=== PATIENT | female | born 1940 | race Caucasian/White ===

== ENCOUNTER 2017-05-12 00:12 | Outpatient (CLI) | payer MEDICARE, OTHER ==
[~2017-05-12 00:12] MED LIST: AMLO10TA PO; ASPI-1265 PO; CETI-102 PO; CHOL2000 PO; CYAN-19 PO; ENOX40SY7 SQ; EVOL140S SQ; LEVO150T8 PO; METO50TA17 PO; VITC500T PO; ZINC50TA60 PO
== END 2017-05-12 23:59 | disposition home or self-care (01) ==
LOC: DIABETIC 00:12
PROVIDERS: ATTEND Family Medicine
DX: E11.65 Type 2 diabetes mellitus with hyperglycemia (principal); I10 Essential (primary) hypertension; F17.200 Nicotine dependence, unspecified, uncomplicated
CPT/HCPCS: G0108

== ENCOUNTER 2017-05-29 06:23 | Inpatient (IN) | payer MEDICARE, OTHER ==
[~2017-05-29] VITALS: Ht 167.6 cm; Wt 96.0 kg
[2017-05-29 06:47] LABS: BASOPHILS % (AUTO) 0.4 % (0-1); EOSINOPHILS # (AUTO) 0.2 X10'3 (0-0.9); EOSINOPHILS % (AUTO) 2.6 % (0-6); HEMATOCRIT 39.2 % (35.0-45.0); HEMOGLOBIN 13.3 g/dl (12.0-16.0); LYMPHOCYTES # (AUTO) 2.7 X10'3 (1.1-4.8); LYMPHOCYTES % (AUTO) 33.4 % (21-51); MEAN CORPUSCULAR HEMOGLOBIN 31.6 PG (27.0-31.0); MEAN CORPUSCULAR HGB CONC 33.9 % (33.0-36.5); MEAN CORPUSCULAR VOLUME 93.1 FL (78-98); MEAN PLATELET VOLUME 7.3 FL (7.4-10.4); MONOCYTES # (AUTO) 0.6 X10'3 (0-0.9); MONOCYTES % (AUTO) 7.4 % (2-12); NEUTROPHILS # (AUTO) 4.5 X10'3 (1.8-7.7); NEUTROPHILS % (AUTO) 56.2 % (42-75); PLATELET COUNT 228 X10'3 (140-440); RED BLOOD COUNT 4.21 X10'6 (4.20-5.60)
[2017-05-29 06:57] LABS: INR 2.5 INR; PROTHROMBIN TIME 24.6 SECONDS (9.0-12.0)
[2017-05-29 07:14] LABS: ALANINE AMINOTRANSFERASE 19 U/L (12-78); ALBUMIN 3.5 G/DL (3.4-5.0); ALKALINE PHOSPHATASE 102 IU/L (46-116); ANION GAP 12 (8-16); ASPARTATE AMINO TRANSFERASE 16 U/L (10-37); BILIRUBIN,TOTAL 0.4 MG/DL (0.1-1.0); BLOOD UREA NITROGEN 25 MG/DL (7-18); BUN/CREATININE RATIO 13.9 (6.6-38.0); CALCIUM 8.7 MG/DL (8.5-10.1); CHLORIDE 109 MMOL/L (99-107); GLUCOSE 123 MG/DL (70-104); MAGNESIUM 1.6 MG/DL (1.5-2.4); POTASSIUM 3.9 MMOL/L (3.5-5.1); SODIUM 144 MMOL/L (135-145); TOTAL CARBON DIOXIDE 23.5 MMOL/L (24-32); TOTAL PROTEIN 7.1 G/DL (6.4-8.2); eGFR 27 ML/MIN
[2017-05-29] MEDS ORDERED: normal saline 1000ML IV soln IVB ONE (07:20)
[2017-05-29 08:26] LABS: CLARITY,URINE CLEAR (Clear); COLOR,URINE YELLOW (Yellow); GLUCOSE, URINE NEGATIVE (Neg); KETONES,URINE NEGATIVE (Neg); LEUKOCYTE ESTERASE ,URINE SMALL (Neg); NITRITES, URINE NEGATIVE (Neg); OCCULT BLOOD,URINE TRACE-INTACT (Neg); PH,URINE 5.5 (4.8-8.0); PROTEIN,URINE 30 mg/dl (Neg); UROBILINOGEN,URINE 0.2 E.U/dL (0.2-1.0)
[2017-05-29 08:27] LABS: UA COLLECTION TYPE CLN CATCH MIDSTREAM
[2017-05-29 08:38] LABS: WBC,URINE 20-30 /HPF (0-4)
[2017-05-29 08:41] LABS: BACTERIA,URINE 1+ /HPF (Neg); HYALINE CASTS 0-3 /LPF (NEGATIVE); RBC,URINE 0-2 /HPF (0-2); RENAL CELLS, URINE MODERATE /HPF; SQUAMOUS EPITHELIAL CELL,UR FEW /LPF (FEW); WBC CLUMPS,URINE FEW /HPF (NEGATIVE)
[2017-05-29] MEDS ORDERED: CefTRIAXone 2gm/NS 100ml IVPB 100 ML IV ONE (09:00)
[2017-05-29] MEDS: normal saline 1000ml 1,000 ML IV SCH ×2 (09:26→18:47)
[2017-05-29] MEDS ORDERED: magnesium 2GM in 50ml NS 50 ML IV PRN (09:30)
[2017-05-29] MEDS ORDERED: magnesium hydroxide 30ml (MOM) UD suspension PO PRN (09:30)
[2017-05-29] MEDS ORDERED: magnesium 4gm in 100ml NS 100 ML IV PRN (09:30)
[2017-05-29] MEDS ORDERED: potassium Cl 40MEQ/NS 500ml 500 ML IV PRN ×2 (09:30)
[2017-05-29] MEDS ORDERED: acetaminophen 325mg tablet PO PRN (09:30)
[2017-05-29] MEDS ORDERED: potassium Cl 20 mEq SR tablet PO PRN ×2 (09:30)
[2017-05-29] MEDS ORDERED: magnesium Cl slow-release 64mg tablet PO PRN (09:30)
[2017-05-29] MEDS ORDERED: ondansetron/PF 4mg/2ml inj IV PRN (09:30)
[2017-05-29] MEDS ORDERED: mag hydrox/Alum hydrox/simeth 30ml oral suspension PO PRN (09:30)
[2017-05-29 10:30] VITALS: BP 153/56
[2017-05-29 15:00] VITALS: BP 159/52
[2017-05-29 19:00] VITALS: BP 146/71
[2017-05-29 23:00] VITALS: BP 150/64
[2017-05-30 03:00] VITALS: BP 132/54
[2017-05-30] MEDS: normal saline 1000ml 1,000 ML IV SCH (05:26)
[2017-05-30 06:00] VITALS: BP 150/57
[2017-05-30 06:17] LABS: BASOPHILS % (AUTO) 0.6 % (0-1); EOSINOPHILS # (AUTO) 0.2 X10'3 (0-0.9); EOSINOPHILS % (AUTO) 3.1 % (0-6); HEMATOCRIT 33.6 % (35.0-45.0); HEMOGLOBIN 11.4 g/dl (12.0-16.0); LYMPHOCYTES # (AUTO) 1.5 X10'3 (1.1-4.8); LYMPHOCYTES % (AUTO) 23.9 % (21-51); MEAN CORPUSCULAR HEMOGLOBIN 31.6 PG (27.0-31.0); MEAN CORPUSCULAR HGB CONC 34.1 % (33.0-36.5); MEAN CORPUSCULAR VOLUME 92.7 FL (78-98); MONOCYTES # (AUTO) 0.5 X10'3 (0-0.9); MONOCYTES % (AUTO) 7.6 % (2-12); NEUTROPHILS # (AUTO) 4.2 X10'3 (1.8-7.7); NEUTROPHILS % (AUTO) 64.8 % (42-75); PLATELET COUNT 195 X10'3 (140-440); RED BLOOD COUNT 3.62 X10'6 (4.20-5.60); RED CELL DISTRIBUTION WIDTH 15.6 % (11.5-14.5); WHITE BLOOD COUNT 6.5 X10'3 (4.5-11.0)
[2017-05-30] MEDS ORDERED: levoTHYROXINE 75mcg tablet PO SCH (07:00)
[2017-05-30 07:26] LABS: ALBUMIN 2.8 G/DL (3.4-5.0); ANION GAP 8 (8-16); BLOOD UREA NITROGEN 22 MG/DL (7-18); BUN/CREATININE RATIO 12.9 (6.6-38.0); CALCIUM 7.5 MG/DL (8.5-10.1); CHLORIDE 111 MMOL/L (99-107); GLUCOSE 88 MG/DL (70-104); MAGNESIUM 1.3 MG/DL (1.5-2.4); POTASSIUM 4.3 MMOL/L (3.5-5.1); SODIUM 144 MMOL/L (135-145); TOTAL CARBON DIOXIDE 25.1 MMOL/L (24-32); eGFR 29 ML/MIN
[2017-05-30] MEDS ORDERED: ascorbic acid 500mg tablet PO SCH (08:00)
[2017-05-30] MEDS ORDERED: amLODIPine 5mg tablet PO SCH (08:00)
[2017-05-30] MEDS ORDERED: vitamin D (cholecalciferol) 1,000 unit tablet PO SCH (08:00)
[2017-05-30] MEDS ORDERED: CefTRIAXone/D5W-Rocephin 1gm 50 ML IV SCH (08:00)
[2017-05-30] MEDS ORDERED: metoprolol tartrate 50mg tablet PO SCH (08:00)
[2017-05-30] MEDS ORDERED: zinc sulfate 220mg capsule PO SCH ×2 (08:00→09:19)
[2017-05-30] MEDS ORDERED: K and/or MAG REPLACEMENT MC SCH (08:00)
[2017-05-30] MEDS ORDERED: cyanocobalamin 500mcg tablet PO SCH (08:00)
[2017-05-30] MEDS ORDERED: cetirizine 10mg tablet PO SCH (08:00)
[2017-05-30] MEDS ORDERED: cefTRIAXone 1g/NS 100ml IVPB 100 ML IV SCH (09:20)
[2017-05-30] MEDS ORDERED: zinc sulfate 220mg capsule PO ONE (09:25)
[2017-05-30 11:00] VITALS: BP 139/50
== END 2017-05-30 14:25 | disposition home or self-care (01) | DRG 690 ==
LOC: ER 06:24 → PCU 3S 09:26
PROVIDERS: ADMIT Internal Medicine; ATTEND Internal Medicine
DX: N39.0 Urinary tract infection, site not specified (principal); E11.9 Type 2 diabetes mellitus without complications; G47.30 Sleep apnea, unspecified; S93.402A Sprain of unspecified ligament of left ankle, initial encounter; I10 Essential (primary) hypertension; S00.81XA Abrasion of other part of head, initial encounter; Z60.2 Problems related to living alone; W18.30XA Fall on same level, unspecified, initial encounter; Z90.710 Acquired absence of both cervix and uterus; Z88.0 Allergy status to penicillin; Z88.2 Allergy status to sulfonamides; Z88.8 Allergy status to other drugs, medicaments and biological substances; Z91.013 Allergy to seafood; Z91.030 Bee allergy status; Z87.891 Personal history of nicotine dependence; Z86.711 Personal history of pulmonary embolism; Z83.3 Family history of diabetes mellitus; Z82.3 Family history of stroke; Y93.89 Activity, other specified; Y92.89 Other specified places as the place of occurrence of the external cause; Y99.8 Other external cause status
CPT/HCPCS: 36415; 70450; 71045; 72125; 73610; 73630; 80048; 80053; 81001; 83735; 83880; 84484; 85025; 85610; 87077; 87088; 87186; 93005; 96361; 96365; 96366; 99285; J0696; J7030

== ENCOUNTER 2017-08-10 04:59 | Outpatient (CLI) | payer MEDICARE, OTHER ==
[~2017-08-10 04:59] MED LIST changes: -ASPI-1265 PO; -ENOX40SY7 SQ; -EVOL140S SQ
== END 2017-08-10 23:59 | disposition home or self-care (01) ==
LOC: DIABETIC 04:59
PROVIDERS: ATTEND Family Medicine
DX: E11.65 Type 2 diabetes mellitus with hyperglycemia (principal); I10 Essential (primary) hypertension; Z87.891 Personal history of nicotine dependence
CPT/HCPCS: G0108

== ENCOUNTER 2017-12-14 01:00 | Emergency (ER) | payer MEDICARE, OTHER ==
[~2017-12-14] VITALS: Ht 170.2 cm; Wt 85.9 kg
[2017-12-14 04:31] LABS: D-DIMER 1.49 MG/L FEU (0-0.50); INR 1.9 INR; PROTHROMBIN TIME 18.9 SECONDS (9.0-12.0)
[2017-12-14 06:05] VITALS: BP 147/59
== END 2017-12-14 06:06 | disposition home or self-care (01) ==
LOC: ER 01:01
DX: M25.562 Pain in left knee (principal); I10 Essential (primary) hypertension; E11.9 Type 2 diabetes mellitus without complications; Z86.711 Personal history of pulmonary embolism; Z90.710 Acquired absence of both cervix and uterus; Z60.2 Problems related to living alone; Z88.0 Allergy status to penicillin; Z88.2 Allergy status to sulfonamides; Z91.030 Bee allergy status; Z79.899 Other long term (current) drug therapy
CPT/HCPCS: 36415; 85379; 85610; 93971; 99285

== ENCOUNTER 2018-03-31 00:16 | Outpatient (CLI) | payer MEDICARE, OTHER | END 2018-03-31 23:59 | disposition home or self-care (01) | LOC: DIABETIC 00:16 | PROVIDERS: ATTEND Family Medicine | DX: E11.65 Type 2 diabetes mellitus with hyperglycemia (principal); I10 Essential (primary) hypertension; Z79.82 Long term (current) use of aspirin; Z79.899 Other long term (current) drug therapy; Z79.01 Long term (current) use of anticoagulants; Z88.0 Allergy status to penicillin; Z88.2 Allergy status to sulfonamides; Z88.8 Allergy status to other drugs, medicaments and biological substances; Z87.891 Personal history of nicotine dependence | CPT/HCPCS: G0108 ==

== ENCOUNTER 2018-06-30 02:06 | Outpatient (CLI) | payer MEDICARE, OTHER | END 2018-06-30 23:59 | disposition home or self-care (01) | LOC: DIABETIC 02:06 | PROVIDERS: ATTEND Family Medicine | DX: E11.65 Type 2 diabetes mellitus with hyperglycemia (principal); I10 Essential (primary) hypertension; Z79.82 Long term (current) use of aspirin; Z88.0 Allergy status to penicillin; Z88.2 Allergy status to sulfonamides; Z88.8 Allergy status to other drugs, medicaments and biological substances; Z79.01 Long term (current) use of anticoagulants; Z90.710 Acquired absence of both cervix and uterus | CPT/HCPCS: G0108 ==

== ENCOUNTER 2018-09-09 09:26 | Inpatient (IN) | payer MEDICARE, OTHER | END 2018-09-12 15:10 | LOC: MED 3N 09-10 10:03 → ER 09:26 → MED 3N 09-10 11:56 → PCU 3S 09-10 16:10 → ORTHO 4S 12:16 | PROC: 0QS734Z Reposition Left Upper Femur with Internal Fixation Device, Percutaneous Approach (ICD-10-PCS; principal; 2018-09-10 08:13) | PROC: 2W3BXYZ Immobilization of Left Upper Arm using Other Device (ICD-10-PCS; 2018-09-10 08:13) | DX: R55 Syncope and collapse (principal); S72.002A Fracture of unspecified part of neck of left femur, initial encounter for closed fracture; S42.202A Unspecified fracture of upper end of left humerus, initial encounter for closed fracture; N17.9 Acute kidney failure, unspecified ==

== ENCOUNTER 2018-12-29 09:35 | Emergency (ER) | payer MEDICARE, OTHER ==
[~2018-12-29] VITALS: Ht 165.1 cm; Wt 78.0 kg
[~2018-12-29 09:35] MED LIST changes: +COU3T PO; -CYAN-19 PO; +CYAN100019 PO; +METO25TA6 PO; -METO50TA17 PO
[2018-12-29] MEDS ORDERED: ketorolac tromethamine 15mg/ml inj. IM ONE (11:40)
[2018-12-29] MEDS ORDERED: orphenadrine citrate 60mg/2ml inj. IM ONE (11:40)
--- NOTE | 2018-12-29 12:52 | NUR ---
PT REQUESTED FOR SNACKS ASKED DEEP ZHU , PER PA PT IS GOOD TO EAT.
[2018-12-29 13:55] VITALS: BP 132/84
== END 2018-12-29 13:57 | disposition home or self-care (01) ==
LOC: ER 09:35
DX: S16.1XXA Strain of muscle, fascia and tendon at neck level, initial encounter (principal); I10 Essential (primary) hypertension; G47.30 Sleep apnea, unspecified; E11.9 Type 2 diabetes mellitus without complications; Z90.710 Acquired absence of both cervix and uterus; Z86.73 Personal history of transient ischemic attack (TIA), and cerebral infarction without residual deficits; Z88.0 Allergy status to penicillin; Z88.2 Allergy status to sulfonamides; Z91.030 Bee allergy status; Z86.711 Personal history of pulmonary embolism; Z79.899 Other long term (current) drug therapy; Z79.01 Long term (current) use of anticoagulants; X58.XXXA Exposure to other specified factors, initial encounter; Y93.89 Activity, other specified; Y92.89 Other specified places as the place of occurrence of the external cause; Y99.8 Other external cause status
CPT/HCPCS: 72040; 96372; 99284; J1885; J2360

== ENCOUNTER 2019-01-02 02:11 | Outpatient (CLI) | payer MEDICARE, OTHER | END 2019-01-02 23:59 | disposition home or self-care (01) | LOC: DIABETIC 02:11 | PROVIDERS: ATTEND Family Medicine | DX: E11.65 Type 2 diabetes mellitus with hyperglycemia (principal); I10 Essential (primary) hypertension; Z79.899 Other long term (current) drug therapy; Z79.82 Long term (current) use of aspirin; Z79.01 Long term (current) use of anticoagulants; Z88.0 Allergy status to penicillin; Z88.2 Allergy status to sulfonamides; Z88.8 Allergy status to other drugs, medicaments and biological substances; Z87.891 Personal history of nicotine dependence | CPT/HCPCS: G0108 ==

== ENCOUNTER 2019-07-03 04:15 | Outpatient (CLI) | payer MEDICARE, OTHER ==
[~2019-07-03 04:15] MED LIST changes: -CETI-102 PO; +CETI-90 PO
== END 2019-07-03 23:59 | disposition home or self-care (01) ==
LOC: DIABETIC 04:15
PROVIDERS: ATTEND Family Medicine
DX: E11.65 Type 2 diabetes mellitus with hyperglycemia (principal)
CPT/HCPCS: G0108

== ENCOUNTER 2020-12-03 18:46 | Emergency (ER) | payer MEDICARE, OTHER ==
[~2020-12-03] VITALS: Ht 162.6 cm; Wt 80.1 kg
[~2020-12-03 18:46] MED LIST changes: +LOP25T PO; -METO25TA6 PO
[2020-12-03 19:33] VITALS: BP 129/66
[2020-12-03] MEDS ORDERED: METH4TAB3 PO (21:07)
[2020-12-03] MEDS ORDERED: predniSONE 20 mg tablet PO ONE (21:10)
== END 2020-12-03 21:53 | disposition home or self-care (01) ==
LOC: ER 18:47
DX: M10.9 Gout, unspecified (principal); M25.531 Pain in right wrist; I10 Essential (primary) hypertension; E11.9 Type 2 diabetes mellitus without complications; Z86.711 Personal history of pulmonary embolism; Z90.710 Acquired absence of both cervix and uterus; Z98.890 Other specified postprocedural states; Z88.0 Allergy status to penicillin; Z88.2 Allergy status to sulfonamides; Z88.8 Allergy status to other drugs, medicaments and biological substances; Z91.030 Bee allergy status; Z79.899 Other long term (current) drug therapy
CPT/HCPCS: 73130; 99283; J7512

== ENCOUNTER 2021-05-14 14:58 | Inpatient (IN) | payer MEDICARE, OTHER ==
[~2021-05-14] VITALS: Ht 165.1 cm; Wt 85.0 kg
--- NOTE | 2021-05-14 05:54 | NUR ---
This is a 80 year old patient that was admitted from the ER [facility] for positive COVID -19 and weakness and decline on a Bi- pap. Patient unable to communicate history at this time due to Bi- PAP.She is awake & alert & oriented to name.Patient came with saline lock # 18 in right antecubital area without redness or edema noted. The left wrist also with # 18 gauge saline lock & normal saline started@ k[facility].skin intact without redness or breakdown noted. Pt has wick in place for voiding.Side rails up x 2 and bed in low position.
[~2021-05-14 14:58] MED LIST changes: +METH4TAB3 PO
[2021-05-14] MEDS ORDERED: ipratropium/albuterol 3ml nebule NEB PRN (15:05)
[2021-05-14] MEDS ORDERED: normal saline 1000ML IV soln IVB ONE (15:10)
[2021-05-14] MEDS ORDERED: ipratropium/albuterol 3ml nebule NEB ONE (15:10)
[2021-05-14 15:11] LABS: ABG BASE EXCESS -8.3 mmol/L (-2.0-2.0); ABG HCO3 15.8 mmol/L (22.0-26.0); ABG OXYGEN SATURATION 81.4 % (94-97); ABG PCO2 (T) 28.2 mmHg (32.0-45.0); ABG PO2 (T) 46.5 mmHg (75.0-100.0); ALLEN'S TEST POSITIVE; FCOHb 0.2 % (0.0-3.9); FLOW 15 L/min; FMetHb 0.3 % (0.0-1.5); PATIENT TEMPERATURE 36.8; TOTAL HEMOGLOBIN 11.6 G/dl (12.0-16.0)
[2021-05-14 15:31] LABS: BASOPHILS % (AUTO) 0.1 % (0-1); EOSINOPHILS % (AUTO) 0 % (0-6); HEMATOCRIT 34.8 % (35.0-45.0); HEMOGLOBIN 11.5 g/dl (12.0-16.0); LYMPHOCYTES # (AUTO) 0.5 X10'3 (1.1-4.8); LYMPHOCYTES % (AUTO) 7.1 % (21-51); MEAN CORPUSCULAR HEMOGLOBIN 30.6 PG (27.0-31.0); MEAN CORPUSCULAR VOLUME 92.8 FL (78-98); MEAN PLATELET VOLUME 8.5 FL (7.4-10.4); MONOCYTES # (AUTO) 0.2 X10'3 (0-0.9); MONOCYTES % (AUTO) 2.4 % (2-12); NEUTROPHILS # (AUTO) 6.4 X10'3 (1.8-7.7); NEUTROPHILS % (AUTO) 90.4 % (42-75); PLATELET COUNT 209 X10'3 (140-440); RED BLOOD COUNT 3.76 X10'6 (4.20-5.60); RED CELL DISTRIBUTION WIDTH 16.7 % (11.5-14.5); WHITE BLOOD COUNT 7.1 X10'3 (4.5-11.0)
[2021-05-14 15:41] LABS: ALANINE AMINOTRANSFERASE 36 U/L (12-78); ALBUMIN 2.3 G/DL (3.4-5.0); ALBUMIN/GLOBULIN RATIO 0.6 (1.1-1.5); ALKALINE PHOSPHATASE 61 IU/L (46-116); ANION GAP 16 (8-16); ASPARTATE AMINO TRANSFERASE 93 U/L (10-37); BILIRUBIN,TOTAL 0.8 MG/DL (0.1-1.0); BLOOD UREA NITROGEN 64 MG/DL (7-18); BUN/CREATININE RATIO 16.8 (6.6-38.0); CALCIUM 7.4 MG/DL (8.5-10.1); CHLORIDE 104 MMOL/L (99-107); CREATININE 3.82 MG/DL (0.40-0.90); GLUCOSE 119 MG/DL (70-104); POTASSIUM 4.1 MMOL/L (3.5-5.1); SODIUM 138 MMOL/L (135-145); TOTAL CARBON DIOXIDE 17.6 MMOL/L (24-32); eGFR 11 ML/MIN
[2021-05-14] MEDS ORDERED: azithromycin/NS 500mg/250ml 250 ML IV ONE (16:25)
[2021-05-14] MEDS ORDERED: CefTRIAXone/D5W-Rocephin 1gm 50 ML IV ONE (16:25)
[2021-05-14 16:35] LABS: ANISOCYTOSIS 1+; PLATELET ESTIMATE NORMAL; TOTAL CELLS COUNTED 100
[2021-05-14 16:36] LABS: BURR CELLS 2+; SCHISTOCYTES FEW
[2021-05-14] MEDS ORDERED: dexamethasone inj 6 MG in dextrose 5%-water 100 ML IV STA (17:04)
[2021-05-14 17:25] LABS: CLARITY,URINE CLOUDY (Clear); COLOR,URINE YELLOW (Yellow); GLUCOSE, URINE NEGATIVE (Neg); KETONES,URINE TRACE mg/dl (Neg); LEUKOCYTE ESTERASE ,URINE TRACE (Neg); NITRITES, URINE NEGATIVE (Neg); OCCULT BLOOD,URINE TRACE-INTACT (Neg); PROTEIN,URINE 100 mg/dl (Neg); UROBILINOGEN,URINE 0.2 E.U/dL (0.2-1.0)
[2021-05-14 17:31] LABS: SQUAMOUS EPITHELIAL CELL,UR FEW /LPF (FEW); UA COLLECTION TYPE NON-SPECIFIED
[2021-05-14 17:32] LABS: RBC,URINE 0-2 /HPF (0-2); TRANSITIONAL EPI CELLS,URINE FEW /HPF
[2021-05-14 17:33] LABS: AMORPHOUS URATES 2+; BACTERIA,URINE 2+ /HPF (Neg)
[2021-05-14 17:43] LABS: ABG BASE EXCESS -7.8 mmol/L (-2.0-2.0); ABG HCO3 15.7 mmol/L (22.0-26.0); ABG OXYGEN SATURATION 93.1 % (94-97); ABG PCO2 (T) 26.4 mmHg (32.0-45.0); ABG PO2 (T) 69.1 mmHg (75.0-100.0); ALLEN'S TEST POSITIVE; FCOHb 0.3 % (0.0-3.9); FMetHb 0.3 % (0.0-1.5); FO2Hb 92.5 % (94-97); TOTAL HEMOGLOBIN 12.1 G/dl (12.0-16.0)
[2021-05-14 19:07] LABS: APTT 36 SECONDS (22-32)
[2021-05-14] MEDS ORDERED: acetaminophen 325mg tablet PO PRN (19:20)
[2021-05-14] MEDS ORDERED: ondansetron/PF 4mg/2ml inj IV PRN (19:20)
[2021-05-14] MEDS ORDERED: magnesium 2GM in 50ml NS 50 ML IV PRN (19:20)
[2021-05-14] MEDS ORDERED: potassium CL 10mEq/100ml bag 100 ML IV PRN (19:20)
[2021-05-14] MEDS ORDERED: potassium Cl 20 mEq SR tablet PO PRN ×2 (19:20)
[2021-05-14] MEDS: normal saline 1000ml 1,000 ML IV SCH (19:20)
[2021-05-14] MEDS ORDERED: magnesium hydroxide 30ml (MOM) UD suspension PO PRN (19:20)
[2021-05-14] MEDS ORDERED: magnesium 4gm in 100ml NS 100 ML IV PRN (19:20)
[2021-05-14] MEDS ORDERED: mag hydrox/Alum hydrox/simeth 30ml oral suspension PO PRN (19:20)
[2021-05-14] MEDS ORDERED: magnesium Cl slow-release 64mg tablet PO PRN (19:20)
[2021-05-14] MEDS ORDERED: dextrose 50%-water 50ml dispensing syringe IV PRN ×2 (19:25)
[2021-05-14] MEDS ORDERED: glucagon, human recombinant 1mg kit SUBCUT PRN (19:25)
[2021-05-14] MEDS ORDERED: MESSAGE TO PHARMACY PO ONE (19:25)
[2021-05-14] MEDS ORDERED: dextrose ORAL solution 15 GM/59 ML bottle PO PRN ×2 (19:25)
[2021-05-14 19:39] LABS: HEMOGLOBIN A1C 6.5 % (4.5-6.2)
[2021-05-14] MEDS: docusate sod 100mg capsule PO SCH (20:00)
[2021-05-14] MEDS: K and/or MAG REPLACEMENT MC SCH (20:13)
[2021-05-14] MEDS: enoxaparin 40mg/0.4ml syringe SUBCUT SCH (20:30)
[2021-05-14] MEDS: apixaban 2.5mg tablet PO SCH (20:38)
[2021-05-14 20:48] LABS: MAGNESIUM 1.7 MG/DL (1.5-2.4); POTASSIUM 4.1 MMOL/L (3.5-5.1)
[2021-05-14] MEDS: dexamethasone inj 6 MG in dextrose 5%-water 100 ML IV SCH (21:06)
[2021-05-14 22:00] VITALS: BP_SYST 116; BP_SYST 139; BP_DIAS 59; BP_DIAS 61
[2021-05-14] MEDS ORDERED: AMLO10TA13 PO (22:58)
[2021-05-14] MEDS ORDERED: METO25TA6 PO (22:58)
[2021-05-14] MEDS ORDERED: LEVO150T8 PO (22:58)
[2021-05-15 02:00] VITALS: BP 104/52
--- NOTE | 2021-05-15 06:47 | NUR ---
Problems reprioritized. Patient report given, questions answered & plan of care reviewed with Liza.
--- NOTE | 2021-05-15 06:53 | NUR ---
Patient in room ORTHO 4011. I have received report from Johanne LUGO and had the opportunity to ask questions and assume patient care.
[2021-05-15 07:38] LABS: BASOPHILS % (AUTO) 0 % (0-1); EOSINOPHILS % (AUTO) 0 % (0-6); HEMATOCRIT 32.5 % (35.0-45.0); LYMPHOCYTES # (AUTO) 0.2 X10'3 (1.1-4.8); LYMPHOCYTES % (AUTO) 3.2 % (21-51); MEAN CORPUSCULAR HEMOGLOBIN 30.7 PG (27.0-31.0); MEAN CORPUSCULAR HGB CONC 33.8 g/dL (33.0-36.5); MEAN CORPUSCULAR VOLUME 90.7 FL (78-98); MEAN PLATELET VOLUME 8.5 FL (7.4-10.4); MONOCYTES # (AUTO) 0.1 X10'3 (0-0.9); MONOCYTES % (AUTO) 2.1 % (2-12); NEUTROPHILS # (AUTO) 4.9 X10'3 (1.8-7.7); NEUTROPHILS % (AUTO) 94.7 % (42-75); PLATELET COUNT 183 X10'3 (140-440); RED BLOOD COUNT 3.58 X10'6 (4.20-5.60); RED CELL DISTRIBUTION WIDTH 16.4 % (11.5-14.5); WHITE BLOOD COUNT 5.2 X10'3 (4.5-11.0)
[2021-05-15 07:57] LABS: ANION GAP 16 (8-16); BLOOD UREA NITROGEN 66 MG/DL (7-18); CHLORIDE 105 MMOL/L (99-107); CREATININE 3.48 MG/DL (0.40-0.90); GLUCOSE 137 MG/DL (70-104); POTASSIUM 4.1 MMOL/L (3.5-5.1); SODIUM 140 MMOL/L (135-145); TOTAL CARBON DIOXIDE 18.8 MMOL/L (24-32)
[2021-05-15 07:58] LABS: ALANINE AMINOTRANSFERASE 36 U/L (12-78); ALBUMIN 2.2 G/DL (3.4-5.0); ALBUMIN/GLOBULIN RATIO 0.6 (1.1-1.5); ALKALINE PHOSPHATASE 67 IU/L (46-116); ASPARTATE AMINO TRANSFERASE 89 U/L (10-37); BILIRUBIN,TOTAL 0.7 MG/DL (0.1-1.0); CALCIUM 7.3 MG/DL (8.5-10.1); MAGNESIUM 1.7 MG/DL (1.5-2.4); eGFR 13 ML/MIN
[2021-05-15] MEDS: metoprolol tartrate 25mg tablet PO SCH (08:00)
[2021-05-15] MEDS: K and/or MAG REPLACEMENT MC SCH ×2 (08:00→20:40)
[2021-05-15 10:00] VITALS: BP 87/63
[2021-05-15] MEDS: apixaban 2.5mg tablet PO SCH ×2 (10:32→20:38)
[2021-05-15] MEDS: docusate sod 100mg capsule PO SCH ×2 (10:32→20:38)
[2021-05-15] MEDS: levoTHYROXINE 75mcg tablet PO SCH (10:33)
[2021-05-15] MEDS: enoxaparin 40mg/0.4ml syringe SUBCUT SCH (10:34)
[2021-05-15] MEDS: dexamethasone inj 6 MG in dextrose 5%-water 100 ML IV SCH ×2 (12:08→20:39)
[2021-05-15 18:00] VITALS: BP 114/58
[2021-05-15 22:00] VITALS: BP 116/59
[2021-05-16 02:00] VITALS: BP 121/71
[2021-05-16 04:00] VITALS: BP 143/54
--- NOTE | 2021-05-16 06:41 | NUR ---
Patient in room ORTHO 4011. I have received report from Gia LUGO and had the opportunity to ask questions and assume patient care.
[2021-05-16] MEDS: K and/or MAG REPLACEMENT MC SCH ×2 (08:00→20:00)
[2021-05-16 09:04] LABS: BASOPHILS % (AUTO) 0.5 % (0-1); EOSINOPHILS % (AUTO) 0.3 % (0-6); HEMATOCRIT 34.9 % (35.0-45.0); HEMOGLOBIN 11.9 g/dl (12.0-16.0); LYMPHOCYTES # (AUTO) 0.1 X10'3 (1.1-4.8); LYMPHOCYTES % (AUTO) 1.4 % (21-51); MEAN CORPUSCULAR HEMOGLOBIN 31.2 PG (27.0-31.0); MEAN CORPUSCULAR VOLUME 91.9 FL (78-98); MEAN PLATELET VOLUME 8.7 FL (7.4-10.4); MONOCYTES # (AUTO) 0.3 X10'3 (0-0.9); MONOCYTES % (AUTO) 3.1 % (2-12); NEUTROPHILS # (AUTO) 8.1 X10'3 (1.8-7.7); NEUTROPHILS % (AUTO) 94.7 % (42-75); PLATELET COUNT 195 X10'3 (140-440); RED BLOOD COUNT 3.79 X10'6 (4.20-5.60); RED CELL DISTRIBUTION WIDTH 16.9 % (11.5-14.5); WHITE BLOOD COUNT 8.6 X10'3 (4.5-11.0)
[2021-05-16] MEDS: apixaban 2.5mg tablet PO SCH ×2 (09:07→20:52)
[2021-05-16] MEDS: docusate sod 100mg capsule PO SCH ×2 (09:07→20:52)
[2021-05-16] MEDS: levoTHYROXINE 75mcg tablet PO SCH (09:07)
[2021-05-16] MEDS: dexamethasone inj 6 MG in dextrose 5%-water 100 ML IV SCH ×2 (09:08→20:53)
[2021-05-16] MEDS: metoprolol tartrate 25mg tablet PO SCH (09:08)
[2021-05-16 09:42] LABS: ALANINE AMINOTRANSFERASE 33 U/L (12-78); ALBUMIN 2.3 G/DL (3.4-5.0); ALBUMIN/GLOBULIN RATIO 0.5 (1.1-1.5); ALKALINE PHOSPHATASE 103 IU/L (46-116); ANION GAP 14 (8-16); ASPARTATE AMINO TRANSFERASE 66 U/L (10-37); BILIRUBIN,TOTAL 0.7 MG/DL (0.1-1.0); BLOOD UREA NITROGEN 71 MG/DL (7-18); BUN/CREATININE RATIO 22.5 (6.6-38.0); CALCIUM 7.9 MG/DL (8.5-10.1); CHLORIDE 104 MMOL/L (99-107); CREATININE 3.16 MG/DL (0.40-0.90); GLUCOSE 136 MG/DL (70-104); MAGNESIUM 1.8 MG/DL (1.5-2.4); POTASSIUM 3.6 MMOL/L (3.5-5.1); SODIUM 138 MMOL/L (135-145); TOTAL CARBON DIOXIDE 19.6 MMOL/L (24-32); TOTAL PROTEIN 6.5 G/DL (6.4-8.2); eGFR 14 ML/MIN
[2021-05-16 10:00] VITALS: BP 126/66
--- NOTE | 2021-05-16 12:54 | NUR ---
Corey Consult: Pt admit DX respiratory failure, COVID-19, bilateral PNA, and stable dementia per EMR. Hx T2DM A1C 6.5 appropriate given age. Corey 12 w/ skin intact per EMR. Pt PO 25% two of past 4 meals only on carb controlled diet otherwise 0% PO currently on 55L HFNC per EMR. Pt initially AOx1 now AOx3 this AM per EMR. RD recommends Ensure Enlive TIDWM for further protein/kcal needs may tolerate liquid nutrition intake better at this time; MD notified. Will send chopped foods for ease of PO as well; dietary notified. Pt receiving routine colace no BM yet though admit 05/14. Will continue to monitor for further nutrition intervention needs this admit. Rec: 1. liberalize to regular diet given poor PO trends, age, and A1C 6.5%; chop all food for ease of PO; assistance w/ meals 2. Ensure Enlive TIDWM; pending MD verification in EMR 3. encourage meal/ONS intake 4. routine bowel care 5. scaled wt this admit; subsequent weeky wts 6. IF pt poor PO persists at least 5 days and within POC; consider post-pyloric EN vs PN to optimize nutrition status Addendum: 05/16/21 at [address] Amended: Links added.
[2021-05-16] MEDS: lactose-reduced food (Ensure Enlive) - 237ml bottle PO SCH ×2 (13:00→18:00)
[2021-05-16 15:00] VITALS: BP 114/60
[2021-05-16] MEDS: normal saline 1000ml 1,000 ML IV SCH (17:15)
--- NOTE | 2021-05-16 18:39 | NUR ---
Problems reprioritized. Patient report given, questions answered & plan of care reviewed with Gia RN.
[2021-05-16 20:00] VITALS: BP 131/69
[2021-05-16 22:00] VITALS: BP 119/68
[2021-05-17] VITALS (11 sets, daily range): BP systolic 93–143; BP diastolic 60–101
--- NOTE | 2021-05-17 01:41 | NUR ---
MD ALMONTE CALLED PT [id number], ORDERED TO GIVE METOPROLOL 8AM DOSE NOW AND ORDER TELEMETRY MONITORING
[2021-05-17] MEDS: metoprolol tartrate 25mg tablet PO SCH (01:49)
[2021-05-17] MEDS ORDERED: metoprolol tartrate 1mg/ml inj IV ONE (07:00)
--- NOTE | 2021-05-17 07:20 | NUR ---
NOTIFIED, NO CHANGE IN HEART RATE, DAY SHIFT RN TO GIVE MEDICATION ONCE AVAILABLE IN PT PROFILE
--- NOTE | 2021-05-17 07:53 | NUR ---
PAGER ID: [phone] MESSAGE: Staci Rodriguezannabelle [id number] Pt. in afib Lopressor iv 5 mg given recently. HR down from 140s to 120s. BP 121/73 map 82. Last lactic 2.6 2+UTI no ATB ordered. low fowl ouput 100ml overnight. Not drinking. Fluids? ATB? More Lopressor? Gretta [id number]
[2021-05-17] MEDS: lactose-reduced food (Ensure Enlive) - 237ml bottle PO SCH ×3 (08:00→18:00)
[2021-05-17] MEDS: K and/or MAG REPLACEMENT MC SCH ×2 (08:00→20:00)
[2021-05-17] MEDS: docusate sod 100mg capsule PO SCH ×2 (08:00→20:00)
[2021-05-17] MEDS ORDERED: metoprolol tartrate 25mg tablet PO ONE (08:00)
[2021-05-17 08:03] LABS: ALANINE AMINOTRANSFERASE 33 U/L (12-78); ALBUMIN 2.3 G/DL (3.4-5.0); ALBUMIN/GLOBULIN RATIO 0.5 (1.1-1.5); ALKALINE PHOSPHATASE 145 IU/L (46-116); ANION GAP 16 (8-16); ASPARTATE AMINO TRANSFERASE 51 U/L (10-37); BILIRUBIN,TOTAL 0.6 MG/DL (0.1-1.0); BLOOD UREA NITROGEN 74 MG/DL (7-18); BUN/CREATININE RATIO 26.4 (6.6-38.0); CALCIUM 7.9 MG/DL (8.5-10.1); CHLORIDE 108 MMOL/L (99-107); GLUCOSE 151 MG/DL (70-104); MAGNESIUM 1.9 MG/DL (1.5-2.4); POTASSIUM 3.5 MMOL/L (3.5-5.1); SODIUM 143 MMOL/L (135-145); TOTAL CARBON DIOXIDE 19.4 MMOL/L (24-32); TOTAL PROTEIN 6.8 G/DL (6.4-8.2); eGFR 16 ML/MIN
[2021-05-17] MEDS: dexamethasone inj 6 MG in dextrose 5%-water 100 ML IV SCH ×2 (09:23→19:22)
[2021-05-17] MEDS: apixaban 2.5mg tablet PO SCH ×2 (09:24→20:00)
[2021-05-17] MEDS: levoTHYROXINE 75mcg tablet PO SCH (09:24)
[2021-05-17 12:07] LABS: HEMOGLOBIN 12.4 g/dl (12.0-16.0); MEAN CORPUSCULAR HEMOGLOBIN 30.9 PG (27.0-31.0); MEAN CORPUSCULAR HGB CONC 33.5 g/dL (33.0-36.5)
[2021-05-17 12:08] LABS: HEMATOCRIT 36.9 % (35.0-45.0); MEAN CORPUSCULAR VOLUME 92.2 FL (78-98); RED BLOOD COUNT 4.01 X10'6 (4.20-5.60); RED CELL DISTRIBUTION WIDTH 17.2 % (11.5-14.5); WHITE BLOOD COUNT 12.5 X10'3 (4.5-11.0)
[2021-05-17] MEDS: levoFLOXACIN-Levaquin 500mg/D5 100 ML IV SCH (12:55)
[2021-05-17 13:12] LABS: PLATELET ESTIMATE DECREASED; TOTAL CELLS COUNTED 100
[2021-05-17 13:13] LABS: ANISOCYTOSIS 1+; POIKILOCYTOSIS FEW
[2021-05-17] MEDS ORDERED: diltiazem 30mg tablet PO SCH (14:00)
[2021-05-17] MEDS: normal saline 1000ml 1,000 ML IV SCH (14:03)
[2021-05-17] MEDS: LORazepam 2 mg/ml vial IV PRN (14:07)
--- NOTE | 2021-05-17 15:04 | NUR ---
PAGER ID: [phone] MESSAGE: Staci Fracisco [id number] Pt. still sustaining afib HR in 120s. BP 121/ 74. Pt. has already been given po Lopressor, Cardizem po, and Ativan iv. Do you want to order anything else? Gretta [phone]
[2021-05-17] MEDS ORDERED: LIDOcaine 2% 10ml TOPICAL JELLY (Urojet) TP ONE (16:30)
[2021-05-17] MEDS: diltiazem 30mg tablet PO SCH ×2 (16:40→17:27)
--- NOTE | 2021-05-17 17:22 | NUR ---
PAGER ID: [phone] MESSAGE: Staci Fracisco [id number] Do you want increased fluids or repeat lactic for 3.4 lactic? Call MD Reed says its not his pt. ??? Gretta [phone]
[2021-05-17] MEDS: morphine 2 MG/ML inj. syringe IV PRN (17:28)
--- NOTE | 2021-05-17 17:38 | NUR ---
PAGER ID: [phone] MESSAGE: Staci Yap [id number] Pt. unable to swallow. Will also need sitter order. Pt. trys to take off mask. Calling a rapid. Gretta [id number]
--- NOTE | 2021-05-17 17:51 | NUR ---
Rapid called. Spoke with hospitalist on phone see new orders. BP 127/78 HR 120 in afib RR 35. Pt. continues to take off CPAP and is declining. Sitter at bedside assisting pt. Ativan ordered. Unable to swallow at this time.
[2021-05-17] MEDS ORDERED: LORazepam 2 mg/ml vial IV ONE (17:55)
--- NOTE | 2021-05-17 18:50 | NUR ---
Patient in room ORTHO 4010. I have received report from PARISH Glynn and had the opportunity to ask questions and assume patient care.
--- NOTE | 2021-05-17 18:51 | NUR ---
Report given to podiatrist Yvonne.
[2021-05-17] MEDS: insulin Lispro (HumaLOG) vial - multi-dose SQ SCH (19:49)
[2021-05-17] MEDS: diltiazem-NS 100mg/100ml 100 ML IV SCH (20:02)
--- NOTE | 2021-05-17 20:30 | NUR ---
Around this time I called and received an order for restraints because even with a sitter she was able to remove her oxygen.
[2021-05-18] VITALS (9 sets, daily range): BP systolic 103–154; BP diastolic 61–93
[2021-05-18] MEDS: LORazepam 2 mg/ml vial IV PRN ×5 (00:49→21:19)
--- NOTE | 2021-05-18 06:35 | NUR ---
Problems reprioritized. Patient report given, questions answered & plan of care reviewed with PARISH Diaz.
[2021-05-18 06:56] LABS: ALBUMIN 2.4 G/DL (3.4-5.0); ANION GAP 18 (8-16); BILIRUBIN,TOTAL 0.9 MG/DL (0.1-1.0); BLOOD UREA NITROGEN 77 MG/DL (7-18); BUN/CREATININE RATIO 26.9 (6.6-38.0); CALCIUM 8.5 MG/DL (8.5-10.1); CHLORIDE 109 MMOL/L (99-107); CREATININE 2.86 MG/DL (0.40-0.90); GLUCOSE 193 MG/DL (70-104); MAGNESIUM 1.9 MG/DL (1.5-2.4); POTASSIUM 3.8 MMOL/L (3.5-5.1); SODIUM 144 MMOL/L (135-145); TOTAL CARBON DIOXIDE 16.7 MMOL/L (24-32); TOTAL PROTEIN 6.4 G/DL (6.4-8.2); eGFR 16 ML/MIN
[2021-05-18 06:57] LABS: ALANINE AMINOTRANSFERASE 36 U/L (12-78); ALBUMIN/GLOBULIN RATIO 0.6 (1.1-1.5); ALKALINE PHOSPHATASE 210 IU/L (46-116); ASPARTATE AMINO TRANSFERASE 64 U/L (10-37)
--- NOTE | 2021-05-18 07:56 | NUR ---
Paged Dr. Carranza regarding pt. being NPO and Unable to take Eliquis.
[2021-05-18] MEDS: K and/or MAG REPLACEMENT MC SCH ×2 (08:00→19:36)
[2021-05-18] MEDS: docusate sod 100mg capsule PO SCH ×2 (08:00→18:47)
[2021-05-18] MEDS: levoTHYROXINE 75mcg tablet PO SCH (08:00)
[2021-05-18] MEDS: apixaban 2.5mg tablet PO SCH ×2 (08:00→18:48)
[2021-05-18] MEDS: lactose-reduced food (Ensure Enlive) - 237ml bottle PO SCH ×3 (08:00→18:00)
[2021-05-18] MEDS: dexamethasone inj 6 MG in dextrose 5%-water 100 ML IV SCH ×2 (08:14→19:35)
[2021-05-18] MEDS: levoFLOXACIN-Levaquin 500mg/D5 100 ML IV SCH (08:14)
[2021-05-18] MEDS: insulin Lispro (HumaLOG) vial - multi-dose SQ SCH (08:33)
[2021-05-18 09:36] LABS: BASOPHILS # (AUTO) 0.2 X10'3 (0-0.2); BASOPHILS % (AUTO) 1.4 % (0-1); EOSINOPHILS % (AUTO) 0 % (0-6); HEMATOCRIT 34.1 % (35.0-45.0); HEMOGLOBIN 11.2 g/dl (12.0-16.0); LYMPHOCYTES # (AUTO) 2.3 X10'3 (1.1-4.8); LYMPHOCYTES % (AUTO) 14.9 % (21-51); MEAN CORPUSCULAR HEMOGLOBIN 30.2 PG (27.0-31.0); MEAN CORPUSCULAR HGB CONC 32.7 g/dL (33.0-36.5); MEAN CORPUSCULAR VOLUME 92.3 FL (78-98); MEAN PLATELET VOLUME 8.3 FL (7.4-10.4); MONOCYTES # (AUTO) 0.4 X10'3 (0-0.9); MONOCYTES % (AUTO) 2.3 % (2-12); NEUTROPHILS # (AUTO) 12.7 X10'3 (1.8-7.7); NEUTROPHILS % (AUTO) 81.4 % (42-75); PLATELET COUNT 62 X10'3 (140-440); RED CELL DISTRIBUTION WIDTH 16.8 % (11.5-14.5); WHITE BLOOD COUNT 15.6 X10'3 (4.5-11.0)
[2021-05-18 10:14] LABS: ANISOCYTOSIS 1+; ELLIPTOCYTES 1+; NUCLEATED RED BLOOD CELLS 1 /100WBC (0-0); PLATELET ESTIMATE DECREASED; POLYCHROMASIA 1+; TEAR DROP CELLS 1+; TOTAL CELLS COUNTED 100
[2021-05-18 10:15] LABS: ACANTHOCYTES 1+; BURR CELLS 1+
[2021-05-18] MEDS: morphine 2 MG/ML inj. syringe IV PRN ×3 (10:42→16:30)
[2021-05-18] MEDS: sodium bicarbonate (8.4%) inj. 150 MEQ in dextrose 5%-water 1,000 ML IV SCH (10:45)
[2021-05-18] MEDS: diltiazem-NS 100mg/100ml 100 ML IV SCH ×2 (15:03→21:17)
--- NOTE | 2021-05-18 15:37 | NUR ---
Pt. is comfort care per POA. Will keep on BIPAP until family gets a chance to visit.
[2021-05-18] MEDS ORDERED: lactobacillus rhamnosus 10,000 MMU CELLS/CAPSULE PO SCH (20:00)
[2021-05-19] MEDS: morphine 2 MG/ML inj. syringe IV PRN (00:15)
[2021-05-19 02:00] VITALS: BP 109/65
[2021-05-19] MEDS: sodium bicarbonate (8.4%) inj. 150 MEQ in dextrose 5%-water 1,000 ML IV SCH (03:11)
[2021-05-19] MEDS: LORazepam 2 mg/ml vial IV PRN ×2 (03:14→11:16)
[2021-05-19 06:00] VITALS: BP 122/70
[2021-05-19 07:09] LABS: HEMOGLOBIN 10.9 g/dl (12.0-16.0); MEAN CORPUSCULAR VOLUME 90.8 FL (78-98); MEAN PLATELET VOLUME 8.9 FL (7.4-10.4); WHITE BLOOD COUNT 15.8 X10'3 (4.5-11.0)
[2021-05-19 07:15] LABS: BASOPHILS # (AUTO) 0.1 X10'3 (0-0.2); BASOPHILS % (AUTO) 0.7 % (0-1); EOSINOPHILS % (AUTO) 0 % (0-6); HEMATOCRIT 32.3 % (35.0-45.0); LYMPHOCYTES # (AUTO) 0.3 X10'3 (1.1-4.8); LYMPHOCYTES % (AUTO) 2.2 % (21-51); MEAN CORPUSCULAR HEMOGLOBIN 30.8 PG (27.0-31.0); MEAN CORPUSCULAR HGB CONC 33.9 g/dL (33.0-36.5); MONOCYTES # (AUTO) 0.4 X10'3 (0-0.9); MONOCYTES % (AUTO) 2.7 % (2-12); NEUTROPHILS # (AUTO) 14.9 X10'3 (1.8-7.7); NEUTROPHILS % (AUTO) 94.4 % (42-75); RED BLOOD COUNT 3.55 X10'6 (4.20-5.60); RED CELL DISTRIBUTION WIDTH 17.2 % (11.5-14.5)
[2021-05-19 07:26] LABS: ALANINE AMINOTRANSFERASE 39 U/L (12-78); ALBUMIN 2.2 G/DL (3.4-5.0); ALBUMIN/GLOBULIN RATIO 0.6 (1.1-1.5); ALKALINE PHOSPHATASE 241 IU/L (46-116); ANION GAP 16 (8-16); ASPARTATE AMINO TRANSFERASE 77 U/L (10-37); BILIRUBIN,TOTAL 1.9 MG/DL (0.1-1.0); BLOOD UREA NITROGEN 92 MG/DL (7-18); BUN/CREATININE RATIO 29.3 (6.6-38.0); CALCIUM 8.4 MG/DL (8.5-10.1); CHLORIDE 112 MMOL/L (99-107); CREATININE 3.14 MG/DL (0.40-0.90); GLUCOSE 199 MG/DL (70-104); POTASSIUM 4.7 MMOL/L (3.5-5.1); SODIUM 146 MMOL/L (135-145); TOTAL PROTEIN 5.8 G/DL (6.4-8.2); eGFR 14 ML/MIN
[2021-05-19] MEDS: dexamethasone inj 6 MG in dextrose 5%-water 100 ML IV SCH (08:00)
[2021-05-19 08:23] LABS: PLATELET COUNT 43 X10'3 (140-440)
[2021-05-19 08:29] LABS: ANISOCYTOSIS 1+; NUCLEATED RED BLOOD CELLS 4 /100WBC (0-0); PLATELET ESTIMATE DECREASED; TOTAL CELLS COUNTED 100
[2021-05-19 08:30] LABS: ACANTHOCYTES FEW; BURR CELLS 2+; ELLIPTOCYTES 1+; POLYCHROMASIA FEW; SCHISTOCYTES FEW; TEAR DROP CELLS FEW
[2021-05-19 10:00] VITALS: BP 132/77
--- NOTE | 2021-05-19 11:54 | NUR ---
F/u 05/19: Noted pt has been made NPO and DNR w/ comfort care per EMR. LBM 05/17 per EMR. Will continue to follow. Rec: 1. bowel care per rx Addendum: 05/19/21 at [address] Amended: Links added.
--- NOTE | 2021-05-19 14:23 | NUR ---
PRESSURE ULCER EDUCATION: DEFINITION: A pressure ulcer is an area of skin that breaks down when you stay in one position too long. The constant pressure against the skin reduces the blood flow to that area and the affected tissue dies. CAUSES: "Being bedridden or in a wheelchair "Fragile skin "Having a chronic condition, such as diabetes or vascular disease "Inability to move certain parts of your body without assistance "Older age "Incontinence of urine or stool SYMPTOMS: "A reddened area that DOES NOT turn white when pressed on - this can be the beginning of a pressure ulcer "A blister, deep sore or a crater - these can be advanced pressure ulcers FIRST AID: "Relieve the pressure on this area "Keep the area clean and dry "Call your primary doctor if you see any of the above symptoms "DO NOT massage the area "DO NOT use a donut shaped or ring shaped pillow- these actually interfere with the blood flow and cause complications PREVENTION: "Check for pressure ulcers everyday "Change position at least every two hours to relieve pressure "Use items that help relieve pressure- pillows, sheepskin, foam padding, and powders. "Keep skin clean and dry "Eat healthy well balanced meals "Exercise daily IF YOU SEE ANY OF THESE SYMPTOMS WHILE IN THE HOSPITAL - TELL YOUR NURSE IMMEDIATELY. IF YOU SEE ANY OF THESE SYMPTOMS WHILE AT HOME OR HAVE ANY QUESTIONS OR CONCERNS ABOUT PRESSURE ULCERS - CALL YOUR PRIMARY DOCTOR IMMEDIATELY. Addendum: 05/19/21 at 1424 by Una Portillo RN Amended: Links added.
--- NOTE | 2021-05-19 17:38 | NUR ---
I CALLED [facility] [employer] AT 1730 AND FINISHED AT 173, MARJORIE GAVE ME # [phone] AND TOLD ME THAT THE BODY CAN BE RELEASED APPROPRIATE
--- NOTE | 2021-05-19 17:46 | NUR ---
1720: Telemetry called to say pt is all of a sudden in asystole. 1721: Paged 1724: MD stated to have RN pronounce and RN to call family. 1725: Asystole strip printed by telemetry and placed in chart 1727: Called son Rigoberto to notify of pt's . Rigoberto stated that no mortuary was chosen yet. He stated he will call the other brother to see which one to use. 1730: public address system operator called [facility] 1735: Discontinued greene catheter and both piv's. [employer] will clean up patient now. 1743: Spoke to sonRigoberto regarding mortuary. He stated that they will use [facility]. public address system operator also spoke to Rigoberto to confirm mortuary choice. 1745 [facility] to [facility] pt this evening.
--- NOTE | 2021-05-19 17:50 | NUR ---
[facility] had pt all ready for pt to be picked up. Belongings in bag, son aware of pts . [facility] came and picked up pt.
--- NOTE | 2021-05-19 18:00 | NUR ---
CALLED [facility] PER SON/DECISION MAKERS REQUEST FOR BODY TO BE PICKED UP, TIRE BALANCER SAID THAT THEY WOULD CONTACT THE DIRECTOR OF THEIR WORK AND ARRANGE FOR COMMERCIAL FINANCE MANAGER
--- NOTE | 2021-05-19 18:27 | NUR ---
Problems reprioritized. Patient report given, questions answered & plan of care reviewed with PARISH Cooper.
--- NOTE | 2021-05-19 18:28 | NUR ---
Patient in room ORTHO 4010. I have received report from PARISH Rice and had the opportunity to ask questions and assume patient care.
--- NOTE | 2021-05-19 19:51 | NUR ---
Body was released to [facility] with all belongings left via stretcher.
== END 2021-05-19 17:50 | DRG 177 ==
LOC: ER 14:59 → ED HOLD 19:21 → ORTHO 4S 22:57
PROVIDERS: ADMIT Internal Medicine; ATTEND Family Medicine
PROC: 5A09357 Assistance with Respiratory Ventilation, Less than 24 Consecutive Hours, Continuous Positive Airway Pressure (ICD-10-PCS; 2021-05-13)
PROC: 5A09357 Assistance with Respiratory Ventilation, Less than 24 Consecutive Hours, Continuous Positive Airway Pressure (ICD-10-PCS; 2021-05-14)
PROC: 5A0935A Assistance with Respiratory Ventilation, Less than 24 Consecutive Hours, High Flow/Velocity Cannula (ICD-10-PCS; 2021-05-14)
PROC: 5A09357 Assistance with Respiratory Ventilation, Less than 24 Consecutive Hours, Continuous Positive Airway Pressure (ICD-10-PCS; 2021-05-15)
PROC: 5A0945A Assistance with Respiratory Ventilation, 24-96 Consecutive Hours, High Flow/Velocity Cannula (ICD-10-PCS; 2021-05-15)
PROC: 5A09357 Assistance with Respiratory Ventilation, Less than 24 Consecutive Hours, Continuous Positive Airway Pressure (ICD-10-PCS; 2021-05-16)
PROC: 5A09457 Assistance with Respiratory Ventilation, 24-96 Consecutive Hours, Continuous Positive Airway Pressure (ICD-10-PCS; principal; 2021-05-17)
DX: U07.1 COVID-19 (principal); J96.01 Acute respiratory failure with hypoxia; J12.82 Pneumonia due to coronavirus disease 2019; N17.9 Acute kidney failure, unspecified; N39.0 Urinary tract infection, site not specified; N18.4 Chronic kidney disease, stage 4 (severe); E11.51 Type 2 diabetes mellitus with diabetic peripheral angiopathy without gangrene; Z66 Do not resuscitate; D69.6 Thrombocytopenia, unspecified; E11.22 Type 2 diabetes mellitus with diabetic chronic kidney disease; J98.2 Interstitial emphysema; F03.90 Unspecified dementia, unspecified severity, without behavioral disturbance, psychotic disturbance, mood disturbance, and anxiety; R00.0 Tachycardia, unspecified; B96.4 Proteus (mirabilis) (morganii) as the cause of diseases classified elsewhere; G47.30 Sleep apnea, unspecified; I25.10 Atherosclerotic heart disease of native coronary artery without angina pectoris; I12.9 Hypertensive chronic kidney disease with stage 1 through stage 4 chronic kidney disease, or unspecified chronic kidney disease; Z78.1 Physical restraint status; Z51.5 Encounter for palliative care; Z82.3 Family history of stroke; Z83.3 Family history of diabetes mellitus; Z86.711 Personal history of pulmonary embolism; Z90.710 Acquired absence of both cervix and uterus; Z88.0 Allergy status to penicillin; Z88.2 Allergy status to sulfonamides; Z88.8 Allergy status to other drugs, medicaments and biological substances; Z79.899 Other long term (current) drug therapy; Z79.01 Long term (current) use of anticoagulants
CPT/HCPCS: 36415; 36600; 70450; 70490; 71045; 71250; 80053; 81001; 82803; 82948; 83036; 83605; 83735; 84132; 84443; 84484; 85007; 85018; 85025; 85610; 85730; 87040; 87077; 87081; 87088; 87186; 87635; 92508; 93005; 94640; 94660; 94760; 94799; 96360; 99291; C9803; G0378; J0456; J0696; J1100; J1650; J1815; J1956; J2060; J2270; J3490; J7030; J7060; J7070